=== PATIENT | female | born 1950 | race Caucasian/White ===

== ENCOUNTER → 2019-02-17 | Outpatient (CLI) | payer MEDICARE, OTHER ==
--- NOTE | 2019-02-17 17:33 | CT ---
EXAM DESCRIPTION: Head CT without contrast CLINICAL HISTORY: HEADACHE COMPARISON: None available TECHNIQUE: Noncontrast head CT was performed with routine protocol. FINDINGS: Normal shipman-white matter differentiation. Ventricles and sulci are normal for age. No high density hemorrhage, focal edema or shift of the midline. No sulcal effacement. Normal orbital contents. Basilar cisterns appear clear. Intact calvarium with no fracture or lytic lesion. Normal aeration of tympanic cavities and mastoid air cells. No fluid levels in the paranasal sinuses. Skull base appears intact. Symmetrical internal auditory canals. IMPRESSION: No acute intracranial pathologic process. This exam was performed according to our departmental dose-optimization program, which includes automated exposure control, adjustment of the mA and/or kV according to patient size and/or use of iterative reconstruction technique. Total DLP equals 859.97 mGycm. Electronically signed by: Laurent Babcock MD 02/17/2019 5:31 PM CDT
== END ==
LOC: CT 17:00
PROVIDERS: ATTEND Nurse Practitioner Family
DX: R51 Headache (principal)

== ENCOUNTER → 2019-02-22 | Outpatient (CLI) | payer MEDICARE, OTHER ==
--- NOTE | 2019-02-23 17:14 | MAM ---
EXAM DESCRIPTION: 3D Screening BILATERAL : Digital Mammography. CLINICAL HISTORY: 68 years Female ANNUAL SCREENING . No complaints. No personal or family history of breast cancer. Childbirth. Postmenopausal 15/years. HRT 5 or more years ago. Benign right breast biopsy.. Lifetime risk of developing breast cancer (Tyrer-Cuzick model)(%): 5.3. COMPARISON: None available.. No prior reports available. TECHNIQUE: Bilateral CC and MLO projection full-field images, digital tomosynthesis mammographic technique. Bilateral digital 2-D full-field MLO images. CAD not available for tomosynthesis or 2-D images. FINDINGS: The breast parenchymal density pattern is: Almost entirely fatty. No skin thickening or nipple retraction. Biopsy site markers retroareolar right breast. Bilateral solitary calcifications. No new focal, stellate mass or density, focal asymmetry , and no suspicious microcalcifications bilaterally. IMPRESSION: Benign exam. BIRAD CATEGORY: 2 BENIGN FINDINGS. RECOMMENDATIONS: FOLLOW UP: Routine digital bilateral mammographic screening, one year interval from February 2019. Written communication explaining the IMPRESSION and follow-up, will be mailed to the patient and referring health care provider. According to the [employer], yearly mammograms are recommended starting at age 40 and continuing as long as a woman is in good health. Any breast change noted on a breast self-exam should be reported promptly to the patient's healthcare provider. Breast MRI is recommended for women with an approximately 20-25% or greater lifetime risk of breast cancer, including women with a strong family history of breast or ovarian cancer and women who have been treated for Hodgkin's disease. A negative mammographic report should not delay tissue diagnosis in patients with significant clinical history or physical findings. Extremely dense breast tissue limits the sensitivity of digital mammography. Electronically signed by: Amandeep Hickey MD 02/23/2019 5:13 PM CDT
== END ==
LOC: MAMMO 09:19
PROVIDERS: ATTEND Nurse Practitioner Family
DX: Z12.31 Encounter for screening mammogram for malignant neoplasm of breast (principal)

== ENCOUNTER → 2019-04-21 | Outpatient (CLI) | payer MEDICARE, OTHER | LOC: GMAM 16:40 | PROVIDERS: ATTEND Family Medicine | DX: R41.82 Altered mental status, unspecified (principal) ==

== ENCOUNTER → 2019-04-22 | Outpatient (CLI) | payer MEDICARE, OTHER ==
--- NOTE | 2019-04-22 15:13 | MRI ---
EXAM DESCRIPTION: Brain w/wo Contrast: Magnetic Resonance Imaging. CLINICAL HISTORY: 68 years Female ALTERED MENTAL STATUS. CT scan of the head without contrast February 2019. COMPARISON: CT scan of the head without contrast 02/17/2019. TECHNIQUE: Multiplanar, high-field MRI, multiple conventional sequences, without and with gadolinium IV contrast. No adverse reactions. Multiple axial diffusion sequences. FINDINGS: Hypointense blooming signal on T2*gradient sequence, in the left occipital lobe shipman-white matter junction at the level of the left ventricle. Also hypointense FLAIR signal, T2 signal, with blooming low-density on SB 1000 and SB 0 diffusion images. Hyperintense FLAIR signal surrounding the lesion consistent with gliosis. Not well seen on T1 images without and with IV contrast. No enhancement on other sequences. Bilateral mostly multifocal hyperintense FLAIR and T2-weighted signal in the periventricular white matter and shipman-white matter junctions of the cerebral hemispheres. Involvement of the bilateral quiroz radiata and centrum semiovale. More confluent around the frontal and occipital horns but relatively symmetric. . Normal signal in the bilateral basal ganglia. No hemorrhage, no cerebral edema, no mass-effect. Normal contrast enhancement. Normal signal in the brainstem and cerebellar hemispheres. No hemorrhage, no cerebral edema, no mass-effect. Normal contrast enhancement. Concordance of the diffusion and non-diffusion sequences with no evidence of acute or subacute infarction. Cortical sulci, ventricles, and other CSF spaces, and the subdural spaces are physiologic for patient's age. No effacement or displacement. No midline shift. No extra-axial hemorrhage. Normal contrast enhancement. Normal flow signal void in the major vessels of the [place], and the venous sinuses. IACs are symmetric bilaterally. Normal signal bilateral mastoid air cells. No mass effect Cerebellopontine angles. Normal contrast enhancement. Edema and bilateral optic nerve sheaths distally closer to the optic globes. Pituitary gland occupies less than half of the sella. Normal contrast enhancement. Base of the cerebellar tonsils is above the level of the foramen magnum. Minimal mucoperiosteal thickening in the paranasal sinuses. The bony calvarium is intact. IMPRESSION: 1. Small lesion left occipital lobe at the level of the left ventricle body, with blooming artifact on T2*gradient sequence, diffusion sequences and less blooming on FLAIR sequence and T2 sequence. No significant amount of mass effect. Gliosis abutting the lesion. No abnormal enhancement. Differential includes prior parenchymal hemorrhage, prior hemorrhagic stroke, and less likely AVM. Consider follow-up CTA or MRA. 2. Bilateral white matter changes relatively symmetric in the cerebral hemispheres consistent with age-related and or cerebral microvascular disease. No abnormal contrast enhancement or diffusion restriction. Electronically signed by: Amandeep Hickey MD 04/22/2019 3:11 PM CDT
== END ==
LOC: MRI 07:02
PROVIDERS: ATTEND Family Medicine
DX: R41.82 Altered mental status, unspecified (principal); G93.9 Disorder of brain, unspecified

== ENCOUNTER → 2019-04-23 | Outpatient (CLI) | payer MEDICARE, OTHER ==
--- NOTE | 2019-04-25 14:10 | MRI ---
EXAM DESCRIPTION: MRA Head and/or Neck CLINICAL HISTORY: Altered mental status COMPARISON: MRI scan of the right without and with gadolinium IV contrast 04/22/2019. TECHNIQUE: 3D [id number] thin-section axial acquisitions through the base of the skull and the [place]. Non contrast. MIP reconstructions. FINDINGS: Thrombus or calcification in the posterior wall of the distal right cervical ICA with approximately 40% diameter stenosis just proximal to the transverse segment of the ICA. Included bilateral skull base segments of the ICAs otherwise unremarkable. Intracranial ICA segments bilaterally demonstrating normal bifurcations. Bilateral posterior communicating arteries connecting to the posterior circulation. Bilateral vertebral arteries are visualized with the left side dominant. PICA vessels are not seen at the origin. Basilar branches are unremarkable. The majority of flow to the left posterior cerebral artery comes from the basilar artery with a small left posterior communicating artery. The majority of flow in the right posterior cerebral artery comes from the right posterior communicating artery with tiny contribution from the basilar artery. In the anterior posterior circulation, no aneurysm, no stenosis, no mass effect, and no vasculitis. The lesion previously described in the left occipital lobe on the recent MRI scan, is partially visualized in the left occipital lobe with no abnormal circulation involving the included volume of the lesion. IMPRESSION: 1. Approximately 40% diameter stenosis in the distal cervical portion of the right ICA just proximal to the transverse segment. 2. The scan involved the inferior aspect of the lesion in the left occipital lobe described on the recent MRI brain scan. No abnormal circulation in the included images. 3. Anatomic variation in the vascular connections between the anterior and posterior circulations. No aneurysm or stenosis. No vasculitis or mass effect. Electronically signed by: Amandeep Hickey MD 04/25/2019 2:08 PM CDT
== END ==
LOC: MRI 11:03
PROVIDERS: ATTEND Family Medicine
DX: R41.82 Altered mental status, unspecified (principal); I65.21 Occlusion and stenosis of right carotid artery; G93.9 Disorder of brain, unspecified

== ENCOUNTER → 2019-04-26 | Outpatient (CLI) | payer MEDICARE, OTHER | LOC: GMAM 12:06 | PROVIDERS: ATTEND Family Medicine | DX: E83.52 Hypercalcemia (principal); N39.0 Urinary tract infection, site not specified ==